=== PATIENT | male | born 1950 | race Caucasian/White ===

== ENCOUNTER → 2016-03-25 | Outpatient (CLI) | payer OTHER ==
[2016-03-25 10:41] LABS: Basophils # (auto) 0 uL; Basophils % (auto) 0.3 % (0.0-2.0); Eosinophils # (auto) 0.1 uL; Eosinophils % (auto) 1.7 % (0.0-7.0); Hematocrit 44.6 % (41.0-53.0); Hemoglobin 14.2 g/dL (13.5-17.5); Lymphocytes % (auto) 14.5 % (10.0-50.0); Mean Corpuscular Hgb Conc. 31.8 g/dL (32.0-36.0); Mean Corpuscular Volume 97.4 fL (80.0-100.0); Mean Platelet Volume 9.3 fL (7.4-10.4); Monocytes # (auto) 0.6 uL; Monocytes % (auto) 9.4 % (0.0-12.0); Neutrophils # (auto) 4.9 uL; Neutrophils % (auto) 74.1 % (37.0-80.0); Platelet Count (auto) 213 10^3/uL (140-450); Red Cell Distribution Width 14.4 % (11.6-16.0); White Blood Cell 6.7 10^3/uL (4.4-10.8)
[2016-03-25 10:55] LABS: Urine Bilirubin Negative (Negative); Urine Blood Negative /uL (Negative); Urine Color Yellow (Yellow); Urine Glucose Normal (Normal); Urine Ketone Negative (Negative); Urine Nitrite Negative (Negative); Urine RBC <1 /hpf (0 - 3); Urine Urobilinogen Normal (Negative)
[2016-03-25 11:22] LABS: Albumin 3.6 g/dL (3.4-5.0); BUN/Creatinine Ratio 14.1; Bilirubin, Total 0.7 mg/dL (0.2-1.0); Calcium 8.6 mg/dL (8.5-10.1); Phosphorus 3.1 mg/dL (2.6-4.90); Potassium 4.3 mmol/L (3.5-5.1); Total Protein 7.2 g/dL (6.4-8.2); Uric Acid 3.8 mg/dL (3.5-7.2)
== END | disposition home or self-care (01) ==
LOC: LAB 09:29
PROVIDERS: ATTEND Internal Medicine
DX: Z00.00 Encounter for general adult medical examination without abnormal findings (principal)
CPT/HCPCS: 36415; 80053; 80061; 81001; 84100; 84550; 85025

== ENCOUNTER → 2016-03-31 | Outpatient (CLI) | payer OTHER | END | disposition home or self-care (01) | LOC: LAB 06:46 | PROVIDERS: ATTEND Internal Medicine | DX: Z00.00 Encounter for general adult medical examination without abnormal findings (principal) | CPT/HCPCS: 82270 ==

== ENCOUNTER → 2016-08-13 | Outpatient (CLI) | payer OTHER ==
[2016-08-13 11:22] LABS: Basophils # (auto) 0 uL; Basophils % (auto) 0.2 % (0.0-2.0); Eosinophils # (auto) 0.1 uL; Eosinophils % (auto) 1.1 % (0.0-7.0); Hematocrit 41.3 % (41.0-53.0); Hemoglobin 13.7 g/dL (13.5-17.5); Lymphocytes # (auto) 0.9 uL; Lymphocytes % (auto) 14.8 % (10.0-50.0); Mean Corpuscular Hemoglobin 32.2 pg (28.0-32.0); Mean Corpuscular Hgb Conc. 33.2 g/dL (32.0-36.0); Monocytes # (auto) 0.4 uL; Monocytes % (auto) 6.8 % (0.0-12.0); Neutrophils # (auto) 4.6 uL; Neutrophils % (auto) 77.1 % (37.0-80.0); Platelet Count (auto) 221 10^3/uL (140-450); Red Cell Distribution Width 14.8 % (11.6-16.0); White Blood Cell 5.9 10^3/uL (4.4-10.8)
[2016-08-13 11:39] LABS: BUN/Creatinine Ratio 14.7; Calcium 8.2 mg/dL (8.5-10.1)
== END | disposition home or self-care (01) ==
LOC: LAB 10:53
PROVIDERS: ATTEND Internal Medicine
DX: N18.3 Chronic kidney disease, stage 3 (moderate) (principal); I10 Essential (primary) hypertension
CPT/HCPCS: 36415; 80048; 84153; 85025

== ENCOUNTER → 2016-12-19 | Day surgery (SDC) | payer OTHER, MEDICAID ==
[2016-12-16 13:10] LABS: Basophils # (auto) 0 uL; Basophils % (auto) 0.2 % (0.0-2.0); Eosinophils # (auto) 0.1 uL; Eosinophils % (auto) 1.5 % (0.0-7.0); Hematocrit 41.1 % (41.0-53.0); Hemoglobin 13.8 g/dL (13.5-17.5); Lymphocytes # (auto) 0.9 uL; Lymphocytes % (auto) 13.4 % (10.0-50.0); Mean Corpuscular Hemoglobin 33.8 pg (28.0-32.0); Mean Corpuscular Hgb Conc. 33.6 g/dL (32.0-36.0); Mean Corpuscular Volume 100.7 fL (80.0-100.0); Mean Platelet Volume 9.4 fL (6.9-10.8); Monocytes # (auto) 0.5 uL; Monocytes % (auto) 7.6 % (0.0-12.0); Neutrophils # (auto) 5.5 uL; Neutrophils % (auto) 77.3 % (37.0-80.0); Platelet Count (auto) 182 10^3/uL (140-450); Red Cell Distribution Width 13.9 % (11.8-14.3); White Blood Cell 7.1 10^3/uL (4.4-10.8)
[2016-12-16 13:25] LABS: INR 1.01 (0.9-1.15)
[~2016-12-19] VITALS: Ht 172.7 cm; Wt 86.2 kg
[~2016-12-19] MED LIST: ALLO300T2 PO; AMLO10TA2 PO; FISH1CAP2 PO; LIDOCAINE VISCOUS 2% 15ML UD ONE; SIMV-8 PO; SODIUM CHLORIDE LOCK 10 ML ONE; TERA10CA36 PO; diphenhdrAMINE HCL 50 MG/1 ML VL ONE
[2016-12-19] MEDS: MIDAZOLAM HCL 5 MG/ML-1ML VIAL ONE ×3 (09:19→09:31)
[2016-12-19] MEDS: fentaNYL CITRATE 100 MCG/2 ML VL ONE ×3 (09:19→09:31)
[2016-12-19 10:15] VITALS: BP 146/89
== END | disposition home or self-care (01) ==
LOC: GI 08:22
PROVIDERS: ATTEND Internal Medicine Gastroenterology
DX: K63.5 Polyp of colon (principal); K64.8 Other hemorrhoids; K57.30 Diverticulosis of large intestine without perforation or abscess without bleeding; K29.50 Unspecified chronic gastritis without bleeding; I10 Essential (primary) hypertension; Z90.49 Acquired absence of other specified parts of digestive tract
CPT/HCPCS: 36415; 43239; 45380; 85025; 85610; 85730; J1200; J2250; J3010; J7030; 99152

== ENCOUNTER → 2017-01-21 | Outpatient (CLI) | payer OTHER, MEDICAID ==
[~2017-01-21] MED LIST changes: -LIDOCAINE VISCOUS 2% 15ML UD ONE; -SODIUM CHLORIDE LOCK 10 ML ONE; -diphenhdrAMINE HCL 50 MG/1 ML VL ONE
[2017-01-21 09:50] LABS: Basophils # (auto) 0 uL; Basophils % (auto) 0.2 % (0.0-2.0); Eosinophils # (auto) 0.1 uL; Eosinophils % (auto) 1.6 % (0.0-7.0); Hematocrit 41.2 % (41.0-53.0); Hemoglobin 13.9 g/dL (13.5-17.5); Lymphocytes # (auto) 1.1 uL; Lymphocytes % (auto) 17.5 % (10.0-50.0); Mean Corpuscular Hemoglobin 33.3 pg (28.0-32.0); Mean Corpuscular Hgb Conc. 33.8 g/dL (32.0-36.0); Mean Corpuscular Volume 98.5 fL (80.0-100.0); Monocytes # (auto) 0.6 uL; Monocytes % (auto) 9.6 % (0.0-12.0); Neutrophils # (auto) 4.3 uL; Neutrophils % (auto) 71.1 % (37.0-80.0); Nucleated Red Blood Cells % 0.1 %; Platelet Count (auto) 182 10^3/uL (140-450); Red Blood Cells 4.18 10^6/uL (4.5-5.90); Red Cell Distribution Width 13.8 % (11.8-14.3); White Blood Cell 6.1 10^3/uL (4.4-10.8)
[2017-01-21 10:32] LABS: Albumin 3.8 g/dL (3.4-5.0); Bilirubin, Total 0.9 mg/dL (0.2-1.0); Calcium 8.6 mg/dL (8.5-10.1); Potassium 3.7 mmol/L (3.5-5.1); Uric Acid 3.8 mg/dL (3.5-7.2)
== END | disposition home or self-care (01) ==
LOC: LAB 09:20
PROVIDERS: ATTEND Internal Medicine
DX: Z13.0 Encounter for screening for diseases of the blood and blood-forming organs and certain disorders involving the immune mechanism (principal); Z12.5 Encounter for screening for malignant neoplasm of prostate; E78.5 Hyperlipidemia, unspecified; R94.6 Abnormal results of thyroid function studies; R97.20 Elevated prostate specific antigen [PSA]
CPT/HCPCS: 36415; 80053; 80061; 84153; 84443; 84550; 85025

== ENCOUNTER → 2017-05-13 | Outpatient (CLI) | payer OTHER, MEDICAID ==
[2017-05-13 15:20] LABS: Albumin 3.9 g/dL (3.4-5.0); Calcium 8.5 mg/dL (8.5-10.1); Potassium 4.5 mmol/L (3.5-5.1)
[2017-05-13 15:23] LABS: Bilirubin, Total 0.9 mg/dL (0.2-1.0); Total Protein 7.4 g/dL (6.4-8.2)
== END | disposition home or self-care (01) ==
LOC: LAB 14:28
PROVIDERS: ATTEND Internal Medicine
DX: I12.9 Hypertensive chronic kidney disease with stage 1 through stage 4 chronic kidney disease, or unspecified chronic kidney disease (principal); N18.3 Chronic kidney disease, stage 3 (moderate)
CPT/HCPCS: 36415; 80053; 82306

== ENCOUNTER → 2018-01-18 | Outpatient (CLI) | payer OTHER, MEDICAID ==
[~2018-01-18] MED LIST changes: +AMLO10TA12 PO; -AMLO10TA2 PO
[2018-01-18 10:49] LABS: Basophils # (auto) 0 uL; Basophils % (auto) 0.2 % (0.0-2.0); Eosinophils # (auto) 0.1 uL; Hematocrit 40.6 % (41.0-53.0); Hemoglobin 13.6 g/dL (13.5-17.5); Lymphocytes # (auto) 0.9 uL; Lymphocytes % (auto) 15.5 % (10.0-50.0); Mean Corpuscular Hemoglobin 32.5 pg (28.0-32.0); Mean Corpuscular Hgb Conc. 33.5 g/dL (32.0-36.0); Monocytes # (auto) 0.5 uL; Monocytes % (auto) 8.7 % (0.0-12.0); Neutrophils # (auto) 4.4 uL; Neutrophils % (auto) 74.6 % (37.0-80.0); Nucleated Red Blood Cells % 0.1 %; Platelet Count (auto) 193 10^3/uL (140-450); Red Blood Cells 4.19 10^6/uL (4.5-5.90); White Blood Cell 5.9 10^3/uL (4.4-10.8)
[2018-01-18 12:18] LABS: Albumin 3.5 g/dL (3.4-5.0); BUN/Creatinine Ratio 12.9; Bilirubin, Total 0.8 mg/dL (0.2-1.0); Calcium 8.4 mg/dL (8.5-10.1); Total Protein 7.1 g/dL (6.4-8.2); Uric Acid 5.1 mg/dL (3.5-7.2)
== END | disposition home or self-care (01) ==
LOC: LAB 09:30
PROVIDERS: ATTEND Internal Medicine
DX: I10 Essential (primary) hypertension (principal); M10.9 Gout, unspecified; N40.0 Benign prostatic hyperplasia without lower urinary tract symptoms; E03.9 Hypothyroidism, unspecified
CPT/HCPCS: 36415; 80053; 80061; 84153; 84443; 84550; 85025

== ENCOUNTER → 2018-09-07 | Outpatient (CLI) | payer OTHER, MEDICAID ==
[2018-09-07 09:52] LABS: Basophils # (auto) 0 uL; Basophils % (auto) 0.3 % (0.0-2.0); Eosinophils # (auto) 0.1 uL; Eosinophils % (auto) 1.3 % (0.0-7.0); Hematocrit 40.9 % (41.0-53.0); Hemoglobin 13.7 g/dL (13.5-17.5); Lymphocytes # (auto) 1.1 uL; Lymphocytes % (auto) 18.1 % (10.0-50.0); Mean Corpuscular Hemoglobin 31.7 pg (28.0-32.0); Mean Corpuscular Hgb Conc. 33.5 g/dL (32.0-36.0); Mean Corpuscular Volume 94.7 fL (80.0-100.0); Monocytes # (auto) 0.5 uL; Monocytes % (auto) 8.9 % (0.0-12.0); Neutrophils # (auto) 4.2 uL; Neutrophils % (auto) 71.4 % (37.0-80.0); Platelet Count (auto) 178 10^3/uL (140-450); Red Blood Cells 4.32 10^6/uL (4.5-5.90); Red Cell Distribution Width 14.4 % (11.8-14.3); White Blood Cell 5.9 10^3/uL (4.4-10.8)
[2018-09-07 13:04] LABS: Potassium 4.4 mmol/L (3.5-5.1)
[2018-09-07 13:17] LABS: Albumin 3.6 g/dL (3.4-5.0); BUN/Creatinine Ratio 14.9; Bilirubin, Total 0.5 mg/dL (0.2-1.0); Calcium 8.9 mg/dL (8.5-10.1); Total Protein 6.8 g/dL (6.4-8.2)
== END | disposition home or self-care (01) ==
LOC: LAB 09:18
PROVIDERS: ATTEND Internal Medicine
DX: N40.0 Benign prostatic hyperplasia without lower urinary tract symptoms (principal); E78.5 Hyperlipidemia, unspecified; I10 Essential (primary) hypertension
CPT/HCPCS: 36415; 80053; 80061; 84443; 85025

== ENCOUNTER → 2019-02-18 | Outpatient (CLI) | payer OTHER, MEDICAID ==
[~2019-02-18] MED LIST changes: -AMLO10TA12 PO; +AMLO10TA13 PO
[2019-02-18 11:44] LABS: Potassium 4.3 mmol/L (3.5-5.1)
[2019-02-18 12:02] LABS: Albumin 3.6 g/dL (3.4-5.0); BUN/Creatinine Ratio 12.6; Bilirubin, Total 0.8 mg/dL (0.2-1.0); Calcium 8.5 mg/dL (8.5-10.1); Total Protein 6.6 g/dL (6.4-8.2); Uric Acid 6.2 mg/dL (3.5-7.2)
== END | disposition home or self-care (01) ==
LOC: LAB 10:38
PROVIDERS: ATTEND Internal Medicine
DX: N18.9 Chronic kidney disease, unspecified (principal); M10.9 Gout, unspecified
CPT/HCPCS: 36415; 80053; 84550

== ENCOUNTER → 2019-12-07 | Outpatient (CLI) | payer OTHER ==
[2019-12-07 10:34] LABS: Basophils # (auto) 0 10 ^3/uL (0-0.2); Basophils % (auto) 0.2 % (0.0-2.0); Eosinophils # (auto) 0.1 10 ^3/uL (0-0.8); Eosinophils % (auto) 1.1 % (0.0-7.0); Hematocrit 39.3 % (41.0-53.0); Hemoglobin 13.5 g/dL (13.5-17.5); Lymphocytes # (auto) 1.2 10 ^3/uL (0.4-5.4); Lymphocytes % (auto) 20.7 % (10.0-50.0); Mean Corpuscular Hgb Conc. 34.4 g/dL (32.0-36.0); Mean Corpuscular Volume 98.7 fL (80.0-100.0); Monocytes # (auto) 0.5 10 ^3/uL (0-1.3); Monocytes % (auto) 9.2 % (0.0-12.0); Neutrophils # (auto) 3.8 10 ^3/uL (1.6-8.6); Neutrophils % (auto) 68.8 % (37.0-80.0); Nucleated Red Blood Cells % 0.1 %; Platelet Count (auto) 194 10^3/uL (140-450); Red Blood Cells 3.98 10^6/uL (4.5-5.90); Red Cell Distribution Width 13.9 % (11.8-14.3); White Blood Cell 5.6 10^3/uL (4.4-10.8)
[2019-12-07 10:57] LABS: Potassium 4.1 mmol/L (3.5-5.1)
[2019-12-07 11:06] LABS: Albumin 3.5 g/dL (3.4-5.0); BUN/Creatinine Ratio 15.1; Bilirubin, Total 0.7 mg/dL (0.2-1.0); Calcium 8.5 mg/dL (8.5-10.1); Total Protein 6.9 g/dL (6.4-8.2)
== END | disposition home or self-care (01) ==
LOC: LAB 09:48
PROVIDERS: ATTEND Internal Medicine
DX: I10 Essential (primary) hypertension (principal); N40.0 Benign prostatic hyperplasia without lower urinary tract symptoms; E78.5 Hyperlipidemia, unspecified
CPT/HCPCS: 36415; 80053; 80061; 84153; 84443; 85025

== ENCOUNTER → 2019-12-12 | Outpatient (CLI) | payer OTHER | END | disposition home or self-care (01) | LOC: LAB 12:05 | PROVIDERS: ATTEND Internal Medicine | DX: I10 Essential (primary) hypertension (principal); N40.0 Benign prostatic hyperplasia without lower urinary tract symptoms; E78.5 Hyperlipidemia, unspecified | CPT/HCPCS: 82270 ==

== ENCOUNTER → 2020-09-20 | Outpatient (CLI) | payer OTHER ==
[~2020-09-20] MED LIST changes: +AMLO-496 PO; -AMLO10TA13 PO
[2020-09-20 10:19] LABS: Basophils # (auto) 0 10 ^3/uL (0-0.2); Basophils % (auto) 0.2 % (0.0-2.0); Eosinophils # (auto) 0.1 10 ^3/uL (0-0.8); Eosinophils % (auto) 1.1 % (0.0-7.0); Hematocrit 42.3 % (41.0-53.0); Hemoglobin 14.5 g/dL (13.5-17.5); Lymphocytes # (auto) 1.4 10 ^3/uL (0.4-5.4); Mean Corpuscular Hemoglobin 33.1 pg (28.0-32.0); Mean Corpuscular Hgb Conc. 34.3 g/dL (32.0-36.0); Mean Corpuscular Volume 96.6 fL (80.0-100.0); Monocytes # (auto) 0.5 10 ^3/uL (0-1.3); Monocytes % (auto) 8.5 % (0.0-12.0); Neutrophils # (auto) 4.3 10 ^3/uL (1.6-8.6); Neutrophils % (auto) 68.2 % (37.0-80.0); Platelet Count (auto) 185 10^3/uL (140-450); Red Blood Cells 4.38 10^6/uL (4.5-5.90); Red Cell Distribution Width 13.9 % (11.8-14.3); White Blood Cell 6.3 10^3/uL (4.4-10.8)
[2020-09-20 10:51] LABS: Calcium 8.6 mg/dL (8.5-10.1); Potassium 4.3 mmol/L (3.5-5.1)
[2020-09-20 10:57] LABS: Albumin 3.7 g/dL (3.4-5.0); BUN/Creatinine Ratio 14.5; Bilirubin, Total 0.7 mg/dL (0.2-1.0); Total Protein 7.3 g/dL (6.4-8.2)
== END | disposition home or self-care (01) ==
LOC: LAB 09:57
PROVIDERS: ATTEND Internal Medicine
DX: I10 Essential (primary) hypertension (principal); E78.5 Hyperlipidemia, unspecified; N40.0 Benign prostatic hyperplasia without lower urinary tract symptoms
CPT/HCPCS: 36415; 80053; 80061; 84153; 84443; 85025; 85049

== ENCOUNTER → 2020-09-24 | Outpatient (CLI) | payer OTHER | END | disposition home or self-care (01) | LOC: LAB 13:45 | PROVIDERS: ATTEND Internal Medicine | DX: I10 Essential (primary) hypertension (principal); N40.0 Benign prostatic hyperplasia without lower urinary tract symptoms; E78.5 Hyperlipidemia, unspecified | CPT/HCPCS: 82270 ==

== ENCOUNTER → 2021-10-01 | Outpatient (CLI) | payer OTHER ==
[2021-10-01 10:24] LABS: Basophils # (auto) 0 10 ^3/uL (0-0.2); Basophils % (auto) 0.1 % (0.0-2.0); Eosinophils # (auto) 0.1 10 ^3/uL (0-0.8); Lymphocytes # (auto) 1.3 10 ^3/uL (0.4-5.4); Monocytes # (auto) 0.5 10 ^3/uL (0-1.3); Neutrophils # (auto) 4.4 10 ^3/uL (1.6-8.6)
[2021-10-01 10:27] LABS: Hematocrit 40.2 % (41.0-53.0); Hemoglobin 13.8 g/dL (13.5-17.5); Lymphocytes % (auto) 20.2 % (10.0-50.0); Mean Corpuscular Hgb Conc. 34.3 g/dL (32.0-36.0); Mean Corpuscular Volume 99.3 fL (80.0-100.0); Monocytes % (auto) 8.5 % (0.0-12.0); Neutrophils % (auto) 70.2 % (37.0-80.0); Red Blood Cells 4.05 10^6/uL (4.5-5.90); Red Cell Distribution Width 14.3 % (11.8-14.3); White Blood Cell 6.3 10^3/uL (4.4-10.8)
[2021-10-01 10:37] LABS: Albumin 3.4 g/dL (3.4-5.0); Calcium 8.6 mg/dL (8.5-10.1); Potassium 3.9 mmol/L (3.5-5.1)
[2021-10-01 10:45] LABS: BUN/Creatinine Ratio 13.9; Bilirubin, Total 0.7 mg/dL (0.2-1.0); Total Protein 6.6 g/dL (6.4-8.2)
== END | disposition home or self-care (01) ==
LOC: LAB 09:30
PROVIDERS: ATTEND Internal Medicine
DX: E78.5 Hyperlipidemia, unspecified (principal); M40.00 Postural kyphosis, site unspecified; I10 Essential (primary) hypertension
CPT/HCPCS: 36415; 80053; 80061; 84153; 84443; 85025

== ENCOUNTER → 2021-10-11 | Outpatient (CLI) | payer OTHER | END | disposition home or self-care (01) | LOC: LAB 12:01 | PROVIDERS: ATTEND Internal Medicine | DX: E78.5 Hyperlipidemia, unspecified (principal); I10 Essential (primary) hypertension; N40.0 Benign prostatic hyperplasia without lower urinary tract symptoms | CPT/HCPCS: 82270 ==

== ENCOUNTER 2022-02-08 11:56 | Emergency (ER) | payer OTHER ==
[~2022-02-08] VITALS: Ht 172.7 cm; Wt 84.1 kg
[2022-02-08 12:21] VITALS: BP 111/79
[2022-02-08 16:20] LABS: Basophils # (auto) 0 10 ^3/uL (0-0.2); Basophils % (auto) 0.5 % (0.0-2.0); Eosinophils # (auto) 0.1 10 ^3/uL (0-0.8); Eosinophils % (auto) 0.9 % (0.0-7.0); Hematocrit 48.4 % (41.0-53.0); Lymphocytes # (auto) 1.6 10 ^3/uL (0.4-5.4); Lymphocytes % (auto) 19.4 % (10.0-50.0); Mean Corpuscular Hemoglobin 33.5 pg (28.0-32.0); Mean Corpuscular Hgb Conc. 33.1 g/dL (32.0-36.0); Mean Corpuscular Volume 101.2 fL (80.0-100.0); Monocytes # (auto) 0.7 10 ^3/uL (0-1.3); Monocytes % (auto) 8.8 % (0.0-12.0); Neutrophils % (auto) 70.4 % (37.0-80.0); Nucleated Red Blood Cells % 0.5 %; Red Blood Cells 4.78 10^6/uL (4.5-5.90); Red Cell Distribution Width 12.6 % (11.8-14.3); White Blood Cell 8.5 10^3/uL (4.4-10.8)
[2022-02-08 16:25] LABS: Potassium 4.8 mmol/L (3.5-5.1)
[2022-02-08 16:28] LABS: BUN/Creatinine Ratio 13.2
[2022-02-08 16:29] LABS: Calcium 9.3 mg/dL (8.5-10.1); Magnesium 2.6 mg/dL (1.6-2.6)
[2022-02-08 16:32] LABS: Bilirubin, Total 1.1 mg/dL (0.2-1.0); Total Protein 7.3 g/dL (6.4-8.2)
== END 2022-02-08 18:21 | disposition home or self-care (01) ==
LOC: ER 12:01
DX: R06.00 Dyspnea, unspecified (principal); I44.4 Left anterior fascicular block; I10 Essential (primary) hypertension
CPT/HCPCS: 36415; 71046; 80053; 83735; 83880; 84484; 85025; 93005

== ENCOUNTER → 2022-09-29 | Outpatient (CLI) | payer OTHER ==
[~2022-09-29] MED LIST changes: -AMLO-496 PO; +AMLO1TAB23 PO; -SIMV-8 PO; +SIMV20TA20 PO
[2022-09-29 09:47] LABS: Urine WBC None Seen /hpf (0 - 3)
[2022-09-29 09:56] LABS: Basophils # (auto) 0 10 ^3/uL (0-0.2); Basophils % (auto) 0.1 % (0.0-2.0); Eosinophils # (auto) 0 10 ^3/uL (0-0.8); Eosinophils % (auto) 0.4 % (0.0-7.0); Hematocrit 42.4 % (41.0-53.0); Hemoglobin 14.3 g/dL (13.5-17.5); Lymphocytes # (auto) 1.4 10 ^3/uL (0.4-5.4); Lymphocytes % (auto) 16.2 % (10.0-50.0); Mean Corpuscular Hgb Conc. 33.7 g/dL (32.0-36.0); Mean Corpuscular Volume 100.9 fL (80.0-100.0); Monocytes # (auto) 0.8 10 ^3/uL (0-1.3); Monocytes % (auto) 9.4 % (0.0-12.0); Neutrophils # (auto) 6.3 10 ^3/uL (1.6-8.6); Neutrophils % (auto) 73.9 % (37.0-80.0); Nucleated Red Blood Cells % 0.1 %; Red Cell Distribution Width 13.6 % (11.8-14.3); White Blood Cell 8.5 10^3/uL (4.4-10.8)
[2022-09-29 10:06] LABS: Urine Bacteria NONE SEEN /hpf (None Seen); Urine Blood Negative /uL (Negative); Urine Mucus FEW (None Seen); Urine Specific Gravity 1.018 (1.001-1.035)
[2022-09-29 10:46] LABS: Potassium 4.2 mmol/L (3.5-5.1)
[2022-09-29 10:47] LABS: Prostate Specific Antigen 2.41 ng/mL (0.0-4.0)
[2022-09-29 10:59] LABS: Albumin 3.6 g/dL (3.4-5.0); BUN/Creatinine Ratio 18.6 (10.0-20.0); Bilirubin, Total 0.8 mg/dL (0.2-1.0); Calcium 9.3 mg/dL (8.5-10.1); Total Protein 6.9 g/dL (6.4-8.2)
== END | disposition home or self-care (01) ==
LOC: LAB 09:35
PROVIDERS: ATTEND Internal Medicine
DX: Z12.11 Encounter for screening for malignant neoplasm of colon (principal); Z29.9 Encounter for prophylactic measures, unspecified; Z13.1 Encounter for screening for diabetes mellitus
CPT/HCPCS: 36415; 80053; 80061; 81001; 83036; 84153; 84439; 84443; 85025

== ENCOUNTER → 2022-11-11 | Outpatient (CLI) | payer OTHER | END | disposition home or self-care (01) | LOC: LAB 09:43 | PROVIDERS: ATTEND Internal Medicine | DX: Z00.01 Encounter for general adult medical examination with abnormal findings (principal); Z11.59 Encounter for screening for other viral diseases | CPT/HCPCS: 36415; 86803 ==

== ENCOUNTER 2023-01-07 15:45 | Inpatient (IN) | payer OTHER ==
[~2023-01-07] VITALS: Ht 177.8 cm; Wt 83.0 kg
[2023-01-07 16:41] LABS: Basophils # (auto) 0 10 ^3/uL (0-0.2); Eosinophils # (auto) 0.1 10 ^3/uL (0-0.8); Monocytes # (auto) 0.6 10 ^3/uL (0-1.3)
[2023-01-07 16:42] LABS: Basophils % (auto) 0.2 % (0.0-2.0); Eosinophils % (auto) 1.1 % (0.0-7.0); Hematocrit 40.3 % (41.0-53.0); Hemoglobin 13.8 g/dL (13.5-17.5); Lymphocytes # (auto) 1.5 10 ^3/uL (0.4-5.4); Lymphocytes % (auto) 21.9 % (10.0-50.0); Mean Corpuscular Hemoglobin 35.1 pg (28.0-32.0); Mean Corpuscular Hgb Conc. 34.2 g/dL (32.0-36.0); Mean Corpuscular Volume 102.6 fL (80.0-100.0); Monocytes % (auto) 8.3 % (0.0-12.0); Neutrophils # (auto) 4.8 10 ^3/uL (1.6-8.6); Neutrophils % (auto) 68.5 % (37.0-80.0); Nucleated Red Blood Cells % 0.1 %; Red Blood Cells 3.93 10^6/uL (4.5-5.90); Red Cell Distribution Width 13.6 % (11.8-14.3); White Blood Cell 6.9 10^3/uL (4.4-10.8)
[2023-01-07 17:02] LABS: Alanine Aminotransferase 17 U/L (7-40); Albumin 4.3 g/dL (3.2-4.8); Alkaline Phosphatase 72 U/L (46-116); Anion Gap 7 (5-15); Aspartate Aminotransferase 25 U/L (13-40); BUN/Creatinine Ratio 9.6 (10.0-20.0); Bilirubin, Total 0.6 mg/dL (0.2-1.0); Blood Urea Nitrogen 15 mg/dL (9-23); Carbon Dioxide 22 mmol/L (20-30); Chloride 111 mmol/L (98-107); Glucose 91 mg/dL (74-106); Potassium 4.4 mmol/L (3.5-5.1); Sodium 140 mmol/L (136-145)
[2023-01-07 17:03] LABS: Total Protein 7.1 g/dL (5.7-8.2)
[2023-01-07 17:41] VITALS: PULSE 15; RESP 16; O2SAT 97
[2023-01-07 19:04] LABS: Urine WBC None Seen /hpf (0 - 3)
[2023-01-07 19:28] LABS: Urine Bacteria NONE SEEN /hpf (None Seen); Urine Blood Negative /uL (Negative); Urine Clarity Clear (Clear); Urine Color Colorless (Yellow); Urine Protein, UAD 1+ (Negative); Urine Specific Gravity 1.011 (1.001-1.035); Urine Urobilinogen Normal (Negative)
[2023-01-07 19:30] VITALS: PULSE 55; RESP 12; O2SAT 97
[2023-01-07] MEDS ORDERED: NITROGLYCERIN 0.4 MG SL TAB SL PRN (22:30)
[2023-01-07] MEDS ORDERED: ONDANSETRON HCL 4 MG/2 ML VIAL IV PRN (22:30)
[2023-01-07] MEDS ORDERED: ACETAMINOPHEN 325 MG TAB PO PRN (22:30)
[2023-01-07] MEDS ORDERED: MORPHINE SULFATE INJ 2 MG/ml SYRG IV PRN (22:30)
[2023-01-08 05:44] LABS: Anion Gap 7 (5-15); Carbon Dioxide 24 mmol/L (20-30); Chloride 110 mmol/L (98-107); Potassium 4.2 mmol/L (3.5-5.1); Sodium 141 mmol/L (136-145)
[2023-01-08 05:46] LABS: Calcium 8.7 mg/dL (8.7-10.4)
[2023-01-08 05:48] LABS: Basophils # (auto) 0 10 ^3/uL (0-0.2); Eosinophils # (auto) 0.1 10 ^3/uL (0-0.8); Hematocrit 37.6 % (41.0-53.0); Lymphocytes # (auto) 1.3 10 ^3/uL (0.4-5.4); Mean Corpuscular Hgb Conc. 34.4 g/dL (32.0-36.0); Monocytes # (auto) 0.7 10 ^3/uL (0-1.3); Neutrophils # (auto) 3.5 10 ^3/uL (1.6-8.6)
[2023-01-08 05:50] LABS: Basophils % (auto) 0.3 % (0.0-2.0); Eosinophils % (auto) 2.3 % (0.0-7.0); Glucose 82 mg/dL (74-106); Hemoglobin 12.9 g/dL (13.5-17.5); Lymphocytes % (auto) 23.6 % (10.0-50.0); Mean Corpuscular Hemoglobin 34.9 pg (28.0-32.0); Mean Corpuscular Volume 101.5 fL (80.0-100.0); Monocytes % (auto) 11.9 % (0.0-12.0); Neutrophils % (auto) 61.9 % (37.0-80.0); Red Blood Cells 3.71 10^6/uL (4.5-5.90); Red Cell Distribution Width 13.7 % (11.8-14.3); White Blood Cell 5.6 10^3/uL (4.4-10.8)
[2023-01-08 05:51] LABS: BUN/Creatinine Ratio 11.7 (10.0-20.0); Blood Urea Nitrogen 17 mg/dL (9-23)
[2023-01-08 08:00] VITALS: PULSE 44; RESP 17; O2SAT 94
[2023-01-08] MEDS: ENOXAPARIN SOD 40 MG/0.4 ML SYRINGE SC SCH (08:16)
[2023-01-08] MEDS: amLODIPine BESYLATE 5 MG TAB PO SCH (08:16)
[2023-01-08] MEDS: D3 PO SCH (09:41)
[2023-01-08] MEDS: FISH OIL PO SCH (09:41)
[2023-01-08] MEDS ORDERED: TERAZOSIN HCL PO SCH (10:00)
[2023-01-08 13:48] LABS: Folate (Folic Acid) 21.88 ng/mL (>5.38)
[2023-01-08 16:26] VITALS: PULSE 56; RESP 16; O2SAT 96
[2023-01-08] MEDS ORDERED: METH4PAK3 PO (16:57)
[2023-01-08] MEDS ORDERED: GABA-1250 PO (16:58)
[2023-01-08 17:06] VITALS: BP 158/85; PULSE 53; RESP 20; TEMP 97.9; O2SAT 97
[2023-01-08] MEDS ORDERED: PATIENTS OWN MEDICATION (Simvastatin 1 TAB) PO SCH (18:00)
[2023-01-08 20:00] VITALS: PULSE 48; PULSE 52; PULSE 73; RESP 17; RESP 18; O2SAT 17
[2023-01-08 22:00] VITALS: BP 146/77; PULSE 52; RESP 17; TEMP 97.5; O2SAT 96
[2023-01-08] MEDS ORDERED: ATORVASTATIN 20 MG TAB PO SCH (22:00)
[2023-01-08] MEDS ORDERED: TERAZOSIN HCL 5 MG CAP PO SCH (22:00)
[2023-01-09 05:00] VITALS: BP 135/65; PULSE 51; RESP 18; TEMP 97.7; O2SAT 94
[2023-01-09 06:28] LABS: Basophils # (auto) 0 10 ^3/uL (0-0.2); Basophils % (auto) 0.3 % (0.0-2.0); Eosinophils # (auto) 0.1 10 ^3/uL (0-0.8); Hemoglobin 13.8 g/dL (13.5-17.5); Lymphocytes # (auto) 1.2 10 ^3/uL (0.4-5.4); Monocytes # (auto) 0.8 10 ^3/uL (0-1.3); Monocytes % (auto) 12.5 % (0.0-12.0); Neutrophils # (auto) 4.1 10 ^3/uL (1.6-8.6)
[2023-01-09 06:30] LABS: Eosinophils % (auto) 1.7 % (0.0-7.0); Lymphocytes % (auto) 19.9 % (10.0-50.0); Mean Corpuscular Hemoglobin 35.3 pg (28.0-32.0); Mean Corpuscular Hgb Conc. 34.5 g/dL (32.0-36.0); Mean Corpuscular Volume 102.5 fL (80.0-100.0); Neutrophils % (auto) 65.6 % (37.0-80.0); Red Cell Distribution Width 13.8 % (11.8-14.3); White Blood Cell 6.2 10^3/uL (4.4-10.8)
[2023-01-09 06:59] LABS: Anion Gap 5 (5-15); Carbon Dioxide 25 mmol/L (20-30); Chloride 109 mmol/L (98-107); Potassium 4.6 mmol/L (3.5-5.1); Sodium 139 mmol/L (136-145)
[2023-01-09 07:00] LABS: Calcium 8.9 mg/dL (8.5-10.1)
[2023-01-09 07:05] LABS: BUN/Creatinine Ratio 11.1 (10.0-20.0); Blood Urea Nitrogen 16 mg/dL (9-23); Glucose 82 mg/dL (74-106)
[2023-01-09 08:00] VITALS: PULSE 43; RESP 18; O2SAT 96
[2023-01-09 09:00] VITALS: BP 137/69; PULSE 51; RESP 12; TEMP 98; O2SAT 94
[2023-01-09] MEDS: amLODIPine BESYLATE 5 MG TAB PO SCH (09:08)
[2023-01-09 09:24] VITALS: BP 152/86; PULSE 57; RESP 18
[2023-01-09] MEDS: ENOXAPARIN SOD 40 MG/0.4 ML SYRINGE SC SCH (10:00)
[2023-01-09] MEDS: FISH OIL PO SCH (10:00)
[2023-01-09] MEDS ORDERED: CYANOCOBALAMIN 500 MCG TAB PO SCH (10:00)
[2023-01-09] MEDS: D3 PO SCH (10:00)
[2023-01-09] MEDS ORDERED: CYANOCOBALAMIN (B-12) 1000 MCG/1 ML VIAL IM ONE (11:15)
[2023-01-09 13:00] VITALS: BP 135/77; PULSE 55; RESP 16; TEMP 97.7; O2SAT 94
[2023-01-09 13:29] VITALS: BP 135/77; PULSE 55; RESP 16; TEMP 36.5; O2SAT 94
[2023-01-09] MEDS ORDERED: CYAN-17 PO (15:55)
[2023-01-10] MEDS ORDERED: CYANOCOBALAMIN 500 MCG TAB PO SCH (10:00)
== END 2023-01-09 15:58 | disposition home or self-care (01) | DRG 310 ==
LOC: EDBD 15:45 → ER 15:45 → TELE 22:19 → TELE-WESTW 01-08 16:20
PROVIDERS: ADMIT Internal Medicine Geriatric Medicine; ATTEND Student in an Organized Health Care Education/Training Program
DX: R00.1 Bradycardia, unspecified (principal); E87.8 Other disorders of electrolyte and fluid balance, not elsewhere classified; I12.9 Hypertensive chronic kidney disease with stage 1 through stage 4 chronic kidney disease, or unspecified chronic kidney disease; E78.5 Hyperlipidemia, unspecified; N18.30 Chronic kidney disease, stage 3 unspecified; N40.0 Benign prostatic hyperplasia without lower urinary tract symptoms; G62.9 Polyneuropathy, unspecified; K21.9 Gastro-esophageal reflux disease without esophagitis; R42 Dizziness and giddiness; R55 Syncope and collapse; R73.9 Hyperglycemia, unspecified; E53.8 Deficiency of other specified B group vitamins
CPT/HCPCS: 36415; 70450; 70551; 71045; 80048; 80053; 81001; 82607; 82746; 82962; 83735; 83880; 84443; 84484; 85025; 93005; 93017; 93306; 93886; G0378

== ENCOUNTER → 2023-02-23 | Outpatient (CLI) | payer OTHER ==
[~2023-02-23] MED LIST changes: -ALLO300T2 PO; +CYAN-17 PO; -FISH1CAP2 PO; +GABA-1250 PO; -TERA10CA36 PO
[2023-02-23 10:38] LABS: Urine WBC None Seen /hpf (0 - 3)
[2023-02-23 11:18] LABS: Urine Bacteria NONE SEEN /hpf (None Seen); Urine Blood Negative /uL (Negative); Urine Clarity Clear (Clear); Urine Color Yellow (Yellow); Urine Hyaline Cast FEW /lpf (0 - 2); Urine Protein, UAD 2+ (Negative); Urine Specific Gravity 1.017 (1.001-1.035); Urine Urobilinogen Normal (Negative); Urine pH 5.5 (5.0-8.0)
[2023-02-23 11:24] LABS: Potassium 4.9 mmol/L (3.5-5.1)
[2023-02-23 11:25] LABS: Calcium 9.2 mg/dL (8.5-10.1); Protein, Urine 107.8 mg/dL (0.0-11.9)
[2023-02-23 11:27] LABS: Creatinine, Urine 108.08 mg/dL (30.0-125.0)
[2023-02-23 11:30] LABS: BUN/Creatinine Ratio 12.6 (10.0-20.0)
[2023-02-23 11:31] LABS: Albumin 4.3 g/dL (3.2-4.8)
[2023-02-23 11:32] LABS: Phosphorus 3.2 mg/dL (2.4-5.1)
[2023-02-23 11:54] LABS: Uric Acid 6.4 mg/dL (3.7-9.2)
== END | disposition home or self-care (01) ==
LOC: LAB 10:23
PROVIDERS: ATTEND Internal Medicine
DX: N18.31 Chronic kidney disease, stage 3a (principal); D63.1 Anemia in chronic kidney disease; R80.9 Proteinuria, unspecified; M10.9 Gout, unspecified; R82.90 Unspecified abnormal findings in urine; E78.5 Hyperlipidemia, unspecified; E21.3 Hyperparathyroidism, unspecified
CPT/HCPCS: 36415; 80069; 81001; 82306; 82570; 83970; 84156; 84550

== ENCOUNTER → 2023-10-01 | Outpatient (CLI) | payer OTHER ==
[2023-10-01 10:38] LABS: Urine Bacteria None Seen /hpf (None Seen)
[2023-10-01 10:44] LABS: Basophils # (auto) 0 10 ^3/uL (0-0.2); Basophils % (auto) 0.2 % (0.0-2.0); Eosinophils # (auto) 0.1 10 ^3/uL (0-0.8); Hematocrit 41.4 % (41.0-53.0); Hemoglobin 14.3 g/dL (13.5-17.5); Lymphocytes # (auto) 1.2 10 ^3/uL (0.4-5.4); Lymphocytes % (auto) 19.7 % (10.0-50.0); Mean Corpuscular Hemoglobin 33.9 pg (28.0-32.0); Mean Corpuscular Hgb Conc. 34.5 g/dL (32.0-36.0); Monocytes # (auto) 0.7 10 ^3/uL (0-1.3); Monocytes % (auto) 11.4 % (0.0-12.0); Neutrophils # (auto) 4.3 10 ^3/uL (1.6-8.6); Neutrophils % (auto) 67.7 % (37.0-80.0); Red Blood Cells 4.23 10^6/uL (4.5-5.90); Red Cell Distribution Width 13.5 % (11.8-14.3); White Blood Cell 6.3 10^3/uL (4.4-10.8)
[2023-10-01 11:04] LABS: Urine Blood Negative /uL (Negative); Urine Clarity Clear (Clear); Urine Color Yellow (Yellow); Urine Mucus FEW (None Seen); Urine Protein, UAD 2+ (Negative); Urine Urobilinogen Normal (Negative); Urine WBC 1 /hpf (0 - 3); Urine pH 5.5 (5.0-9.0)
[2023-10-01 11:11] LABS: Alanine Aminotransferase 19 U/L (7-40); Albumin 4.1 g/dL (3.2-4.8); Alkaline Phosphatase 65 U/L (46-116); Anion Gap 8 (5-15); Aspartate Aminotransferase 21 U/L (13-40); BUN/Creatinine Ratio 13.3 (10.0-20.0); Blood Urea Nitrogen 19 mg/dL (9-23); Carbon Dioxide 21 mmol/L (20-30); Chloride 114 mmol/L (98-107); Cholesterol 157 mg/dL (< 200); Glucose 94 mg/dL (74-106); LDL Cholesterol 100 mg/dL (< 100); Potassium 3.9 mmol/L (3.5-5.1); Sodium 143 mmol/L (136-145); Triglycerides 120 mg/dL (< 150)
[2023-10-01 11:12] LABS: Bilirubin, Total 0.8 mg/dL (0.2-1.0); HDL Cholesterol 44 mg/dL (40-59); Total Protein 6.4 g/dL (5.7-8.2)
[2023-10-01 11:19] LABS: Prostate Specific Antigen 2.52 ng/mL (0.0-4.0)
[2023-10-01 11:23] LABS: Free T4 (Free Thyroxine) 1.19 ng/dL (0.89-1.76)
== END | disposition home or self-care (01) ==
LOC: LAB 10:11
PROVIDERS: ATTEND Internal Medicine
DX: Z12.5 Encounter for screening for malignant neoplasm of prostate (principal); Z12.11 Encounter for screening for malignant neoplasm of colon; Z00.01 Encounter for general adult medical examination with abnormal findings; Z13.820 Encounter for screening for osteoporosis; I12.9 Hypertensive chronic kidney disease with stage 1 through stage 4 chronic kidney disease, or unspecified chronic kidney disease; N18.31 Chronic kidney disease, stage 3a; E78.5 Hyperlipidemia, unspecified; D75.89 Other specified diseases of blood and blood-forming organs
CPT/HCPCS: 36415; 80053; 80061; 81001; 82306; 83036; 84153; 84439; 84443; 85025

== ENCOUNTER → 2023-10-05 | Outpatient (CLI) | payer OTHER | END | disposition home or self-care (01) | LOC: LAB 13:14 | PROVIDERS: ATTEND Internal Medicine | DX: Z12.11 Encounter for screening for malignant neoplasm of colon (principal); Z12.5 Encounter for screening for malignant neoplasm of prostate; Z13.820 Encounter for screening for osteoporosis; D75.89 Other specified diseases of blood and blood-forming organs; Z00.01 Encounter for general adult medical examination with abnormal findings; I12.9 Hypertensive chronic kidney disease with stage 1 through stage 4 chronic kidney disease, or unspecified chronic kidney disease; N18.31 Chronic kidney disease, stage 3a; E78.5 Hyperlipidemia, unspecified | CPT/HCPCS: 82274 ==

== ENCOUNTER → 2024-01-25 | Outpatient (CLI) | payer OTHER ==
[2024-01-25 10:32] LABS: Urine Bacteria None Seen /hpf (None Seen)
[2024-01-25 10:46] LABS: Basophils # (auto) 0 10 ^3/uL (0-0.2); Basophils % (auto) 0.1 % (0.0-2.0); Eosinophils # (auto) 0.1 10 ^3/uL (0-0.8); Eosinophils % (auto) 1.3 % (0.0-7.0); Hematocrit 43.3 % (41.0-53.0); Hemoglobin 14.9 g/dL (13.5-17.5); Lymphocytes # (auto) 1.3 10 ^3/uL (0.4-5.4); Lymphocytes % (auto) 20.3 % (10.0-50.0); Mean Corpuscular Hemoglobin 33.2 pg (28.0-32.0); Mean Corpuscular Hgb Conc. 34.5 g/dL (32.0-36.0); Mean Corpuscular Volume 96.3 fL (80.0-100.0); Monocytes # (auto) 0.8 10 ^3/uL (0-1.3); Monocytes % (auto) 11.6 % (0.0-12.0); Neutrophils # (auto) 4.4 10 ^3/uL (1.6-8.6); Neutrophils % (auto) 66.7 % (37.0-80.0); Platelet Count (auto) 194 10^3/uL (140-450); Urine Blood Negative /uL (Negative); Urine Clarity Clear (Clear); Urine Color Light-Yellow (Yellow); Urine Hyaline Cast FEW /lpf (0 - 2); Urine Protein, UAD 2+ (Negative); Urine Specific Gravity 1.014 (1.001-1.035); Urine Urobilinogen Normal (Negative); Urine WBC <1 /hpf (0 - 3); Urine pH 5.5 (5.0-9.0); White Blood Cell 6.6 10^3/uL (4.4-10.8)
[2024-01-25 11:44] LABS: Potassium 4.7 mmol/L (3.5-5.1)
[2024-01-25 11:45] LABS: Calcium 9.7 mg/dL (8.7-10.4)
[2024-01-25 11:50] LABS: BUN/Creatinine Ratio 12.6 (10.0-20.0)
[2024-01-25 11:52] LABS: Phosphorus 2.9 mg/dL (2.4-5.1)
[2024-01-25 12:08] LABS: Uric Acid 7.8 mg/dL (3.7-9.2)
[2024-01-25 12:16] LABS: Creatinine, Urine 72.71 mg/dL (30.0-125.0)
== END | disposition home or self-care (01) ==
LOC: LAB 10:16
PROVIDERS: ATTEND Internal Medicine
DX: E11.21 Type 2 diabetes mellitus with diabetic nephropathy (principal); N39.0 Urinary tract infection, site not specified; D63.1 Anemia in chronic kidney disease; R80.9 Proteinuria, unspecified; N18.30 Chronic kidney disease, stage 3 unspecified; M10.9 Gout, unspecified; E55.9 Vitamin D deficiency, unspecified
CPT/HCPCS: 36415; 80069; 81001; 82043; 82570; 83970; 84550; 85025

== ENCOUNTER → 2024-06-29 | Outpatient (CLI) | payer OTHER ==
[2024-06-29 10:09] LABS: Urine Bacteria None Seen /hpf (None Seen)
[2024-06-29 10:23] LABS: Basophils # (auto) 0 10 ^3/uL (0-0.2); Basophils % (auto) 0.1 % (0.0-2.0); Eosinophils # (auto) 0.3 10 ^3/uL (0-0.8); Eosinophils % (auto) 4.1 % (0.0-7.0); Hematocrit 41.4 % (41.0-53.0); Hemoglobin 13.7 g/dL (13.5-17.5); Lymphocytes # (auto) 1.3 10 ^3/uL (0.4-5.4); Lymphocytes % (auto) 19.1 % (10.0-50.0); Mean Corpuscular Hemoglobin 32.3 pg (28.0-32.0); Mean Corpuscular Hgb Conc. 33.2 g/dL (32.0-36.0); Mean Corpuscular Volume 97.2 fL (80.0-100.0); Monocytes # (auto) 0.7 10 ^3/uL (0-1.3); Monocytes % (auto) 9.9 % (0.0-12.0); Neutrophils # (auto) 4.6 10 ^3/uL (1.6-8.6); Neutrophils % (auto) 66.8 % (37.0-80.0); Platelet Count (auto) 188 10^3/uL (140-450); Red Blood Cells 4.26 10^6/uL (4.5-5.90); Red Cell Distribution Width 13.4 % (11.8-14.3); White Blood Cell 6.9 10^3/uL (4.4-10.8)
[2024-06-29 10:35] LABS: Urine Blood Negative /uL (Negative); Urine Clarity Clear (Clear); Urine Color Yellow (Yellow); Urine Protein, UAD 1+ (Negative); Urine Specific Gravity 1.018 (1.001-1.035); Urine Squamous Epithelial Cell None Seen /hpf (<5); Urine Urobilinogen Normal (Negative); Urine WBC < 1 /HPF (0-3); Urine pH 5.5 (5.0-9.0)
[2024-06-29 10:55] LABS: Alanine Aminotransferase 18 U/L (7-40); Alkaline Phosphatase 74 U/L (46-116); Anion Gap 8 (5-15); Aspartate Aminotransferase 21 U/L (13-40); BUN/Creatinine Ratio 13.5 (10.0-20.0); Calcium 9.3 mg/dL (8.7-10.4); Carbon Dioxide 24 mmol/L (20-31); Glucose 88 mg/dL (74-106); LDL Cholesterol 84 mg/dL (< 100); Potassium 4.4 mmol/L (3.5-5.1); Sodium 144 mmol/L (136-145); Total Protein 6.5 g/dL (5.7-8.2); Triglycerides 88 mg/dL (< 150)
[2024-06-29 10:56] LABS: Bilirubin, Total 0.6 mg/dL (0.2-1.0); Cholesterol 142 mg/dL (< 200); HDL Cholesterol 42 mg/dL (40-59)
[2024-06-29 10:58] LABS: Blood Urea Nitrogen 24 mg/dL (9-23); Chloride 112 mmol/L (98-107)
[2024-06-29 11:01] LABS: Creatinine, Urine 97.6 mg/dL (30.0-125.0)
== END | disposition home or self-care (01) ==
LOC: LAB 09:48
PROVIDERS: ATTEND Internal Medicine
DX: Z13.1 Encounter for screening for diabetes mellitus (principal); I13.0 Hypertensive heart and chronic kidney disease with heart failure and stage 1 through stage 4 chronic kidney disease, or unspecified chronic kidney disease; I50.32 Chronic diastolic (congestive) heart failure; N18.31 Chronic kidney disease, stage 3a; N25.81 Secondary hyperparathyroidism of renal origin; E78.5 Hyperlipidemia, unspecified; E55.9 Vitamin D deficiency, unspecified; R80.8 Other proteinuria; Z00.01 Encounter for general adult medical examination with abnormal findings
CPT/HCPCS: 36415; 80053; 80061; 81001; 82043; 82306; 82570; 83036; 84439; 84443; 85025

== ENCOUNTER 2024-09-27 09:29 | Outpatient (CLI) | payer OTHER ==
[2024-09-27 09:52] LABS: Hematocrit 41.7 % (41.0-53.0); Hemoglobin 14.1 g/dL (13.5-17.5); Mean Corpuscular Hemoglobin 32.7 pg (28.0-32.0); Mean Corpuscular Volume 96.5 fL (80.0-100.0); Nucleated Red Blood Cells % 0.1 %
[2024-09-27 09:56] LABS: Urine Protein, UAD 2+ (Negative)
[2024-09-27 10:25] LABS: Potassium 4.0 mmol/L (3.5-5.1); Sodium 142.0 mmol/L (136-145)
[2024-09-27 10:26] LABS: Anion Gap 9.0 (5-15); Carbon Dioxide 22.0 mmol/L (20-31)
[2024-09-27 10:27] LABS: Calcium 9.4 mg/dL (8.7-10.4)
[2024-09-27 10:31] LABS: BUN/Creatinine Ratio 13.7 (10.0-20.0); Glucose 89.0 mg/dL (74-106)
[2024-09-27 10:33] LABS: Albumin 4.2 g/dL (3.2-4.8)
[2024-09-27 10:39] LABS: Blood Urea Nitrogen 25.0 mg/dL (9-23); Chloride 111.0 mmol/L (98-107)
[2024-09-27 10:47] LABS: Microalb/Creat Ratio, Urine 611.0
[2024-09-27 11:44] LABS: Uric Acid 7.8 mg/dL (3.7-9.2)
== END 2024-09-27 17:00 | disposition home or self-care (01) ==
LOC: LAB 09:29
PROVIDERS: ATTEND Internal Medicine
DX: E11.22 Type 2 diabetes mellitus with diabetic chronic kidney disease (principal); N18.30 Chronic kidney disease, stage 3 unspecified; N39.0 Urinary tract infection, site not specified; R80.9 Proteinuria, unspecified; E21.3 Hyperparathyroidism, unspecified; M10.9 Gout, unspecified; E55.9 Vitamin D deficiency, unspecified; D63.1 Anemia in chronic kidney disease
CPT/HCPCS: 36415; 80069; 81001; 82043; 82570; 83970; 84550; 85025

== ENCOUNTER → 2024-12-28 | Outpatient (CLI) | payer OTHER | END | disposition home or self-care (01) | LOC: LAB 13:38 | PROVIDERS: ATTEND Internal Medicine | DX: Z12.5 Encounter for screening for malignant neoplasm of prostate (principal); Z12.11 Encounter for screening for malignant neoplasm of colon; Z79.899 Other long term (current) drug therapy | CPT/HCPCS: 82274; 84153 ==

== ENCOUNTER 2025-01-17 11:55 | Outpatient (CLI) | payer OTHER ==
[2025-01-17 12:44] LABS: Urine Protein, UAD 2+ (Negative)
[2025-01-17 12:47] LABS: Hematocrit 40.4 % (41.0-53.0); Hemoglobin 14.0 g/dL (13.5-17.5); Mean Corpuscular Hemoglobin 33.2 pg (28.0-32.0); Mean Corpuscular Volume 96.1 fL (80.0-100.0); Nucleated Red Blood Cells % 0.0 %
[2025-01-17 12:49] LABS: Potassium 4.2 mmol/L (3.5-5.1); Sodium 144.0 mmol/L (136-145)
[2025-01-17 12:50] LABS: Anion Gap 10.0 (5-15); Carbon Dioxide 24.0 mmol/L (20-31)
[2025-01-17 12:51] LABS: Protein, Urine 221.6 mg/dL (1-14)
[2025-01-17 12:52] LABS: Calcium 8.6 mg/dL (8.7-10.4); Chloride 110.0 mmol/L (98-107)
[2025-01-17 12:55] LABS: BUN/Creatinine Ratio 9.9 (10.0-20.0); Blood Urea Nitrogen 20.0 mg/dL (9-23); Glucose 87.0 mg/dL (74-106)
[2025-01-17 12:57] LABS: Albumin 4.1 g/dL (3.2-4.8)
[2025-01-17 16:21] LABS: Uric Acid 7.7 mg/dL (3.7-9.2)
== END 2025-01-17 17:00 | disposition home or self-care (01) ==
LOC: LAB 11:55
PROVIDERS: ATTEND Internal Medicine
DX: E11.22 Type 2 diabetes mellitus with diabetic chronic kidney disease (principal); N18.30 Chronic kidney disease, stage 3 unspecified; E11.21 Type 2 diabetes mellitus with diabetic nephropathy; E21.3 Hyperparathyroidism, unspecified; E55.9 Vitamin D deficiency, unspecified; N39.0 Urinary tract infection, site not specified; D63.1 Anemia in chronic kidney disease; M10.9 Gout, unspecified; R80.9 Proteinuria, unspecified
CPT/HCPCS: 36415; 80069; 81001; 82043; 82570; 83970; 84156; 84550; 85025